=== PATIENT | female | born 1960 | race Caucasian/White ===

== ENCOUNTER → 2021-09-29 09:32 | Outpatient (BNVA) | payer BC, SELFPAY | PROVIDERS: PCP Pediatrics; Visit Provider Internal Medicine ==

== ENCOUNTER → 2022-01-08 14:55 | Outpatient (BNVA) | payer BC, SELFPAY | PROVIDERS: PCP Pediatrics; Visit Provider Internal Medicine | DX: M75.01 Adhesive capsulitis of right shoulder (principal) | CPT/HCPCS: 20610; J3300 ==

== ENCOUNTER 2023-12-06 11:11 | Outpatient (AMB) | payer MEDICARE, SELFPAY ==
--- NOTE | 2023-12-06 11:15 | MHC.OFFVIS ---
Vital Signs 12/06/23 11:16 Height 5 ft 1 in Weight 140 lb BMI 26.4 BP 99/56 L Blood Pressure Location Lt brachial Position Sitting Respiration 12 Pulse 76 Pulse Source Pulse Oximeter Pulse Oximetry (%) 98 Oxygen Delivery Method Room Air Intake Visit Reasons: Returning Pain Allergies sulfacetamide Allergy (Severe, Verified 12/06/23 11:18) Rash Medication List - Last Reconciled 12/06/23 by Emily Kaplan LPN estradiol 10 mcg vaginal levothyroxine 0 mcg PO risedronate 150 mg PO HPI HPI Returning Pain: Details: 63-year-old female who presents today to the office for returning pain symptoms after more than 1 year of relief from her last injections. Her symptoms started about two months ago. She reports shoulder and arm pain. She also reports neck pain, which is radiating in nature. She has difficulty elevating her arm. The pain is worse in the morning. She has difficulty picking things up. She states that she stayed overnight in [place] during hiking and was asleep in the small bed, which aggravated her pain. She completed physical therapy for her neck about a year ago. She has been doing home stretching exercises and yoga strap exercises. She has not had an MRI scan of her neck in the past. She has been under a lot of stress due to the recent demise of her sister. Past procedures: 01/08/22: corticosteroid injection of triamcinolone 40mg with 0.25% bupivacaine in the subacromial space under ultrasound guidance: More than 90% relief for more than 1 year [facility] [place] Medical History Adhesive capsulitis of right shoulder Cervical spinal stenosis Chronic fatigue Osman's thyroiditis Insomnia Osteoporosis PTSD (post-traumatic stress disorder) Social History (Updated 01/08/22 @ 15:01 by Grace Thompson CMA) Patient Tobacco Use Status: Never used Tobacco Review of Systems Const All systems reviewed & are unremarkable except as noted in HPI and below Physical Exam Vital Signs: Last Vital Signs Pulse 76 12/06/23 11:16 Resp 12 12/06/23 11:16 BP 99/56 L 12/06/23 11:16 Pulse Ox 98 12/06/23 11:16 Oxygen Delivery Method Room Air 12/06/23 11:16 BMI result Body Mass Index 26.4 General: Appears afebrile. Alert and oriented. Mood and affect appropriate. Follows and participates in conversation appropriately. Respiratory effort is unlabored. Able to transition from sit to stand unassisted. Ambulates with bilaterally normal heel strike and toe off. Results Reviewed Results Reviewed: No imaging is available for review. Assessment & Plan Assessment & Plan (1) Cervical radiculitis: Code(s): M54.12 - Radiculopathy, cervical region Category: Medical Plan A referral was provided to physical therapy. A script was also provided to the patient for physical therapy. Ordered an MRI scan of the neck for further evaluation. The patient will receive a call to schedule an appointment. The patient will follow up for review of the MRI scan result once it is completed. Scribed for Dr. Lowry by Osman Cunningham, medical appointment scheduler, on 12/06/2023. I, Dr. Lowry, have personally reviewed and agree with the information entered by the scribe. Orders: Orders MR lumbar spine wo con 12/06/23 M48.02 - Spinal stenosis, cervical region PT Evaluation and Treatment 12/06/23 M54.12 - Radiculopathy, cervical region
[2023-12-06 11:16] VITALS: BP 99/56; PULSE 76; RESP 12; O2SAT 98; BMI 26.4
== END 2023-12-06 11:33 | disposition home or self-care (01) ==
PROVIDERS: PCP Pediatrics; Visit Provider Internal Medicine
DX: M54.12 Radiculopathy, cervical region (principal)
CPT/HCPCS: 99213

== ENCOUNTER → 2023-12-06 11:11 | Outpatient (BNVA) | payer MEDICARE, SELFPAY | PROVIDERS: PCP Pediatrics; Visit Provider Internal Medicine | DX: M54.12 Radiculopathy, cervical region (principal) | CPT/HCPCS: 99212 ==

== ENCOUNTER 2024-01-08 16:38 | Outpatient (REF) | payer MEDICARE, SELFPAY | END 2024-01-08 16:39 | disposition home or self-care (01) | LOC: HO.MRI 16:38 | PROVIDERS: PCP Internal Medicine; Visit Provider Internal Medicine | DX: Z13.89 Encounter for screening for other disorder (principal) ==

== ENCOUNTER 2024-02-07 07:19 | Outpatient (REF) | payer MEDICARE, SELFPAY ==
--- NOTE | ~2024-02-07 | MR_ITS ---
EXAMINATION: MR CERVICAL SPINE WITHOUT CONTRAST CLINICAL INFORMATION: 63-year-old female, neck pain radiating down left arm. History of frozen shoulder. COMPARISON: No prior. TECHNIQUE: Multiplanar multisequence MR imaging of the cervical spine was done without IV contrast. Examination was performed on a 1.5 Nichole unit. FINDINGS: Alignment: Normal lordosis. No scoliosis. 2 mm retrolisthesis of C5 on C6, and C6 on C7. Craniocervical Junction/C1-C2 Articulations: Intact and aligned. Imaged Intracranial Structures: Mild cerebellar tonsillar ectopia is present, measuring approximately 3 mm, with pointed morphology of the right tonsil, although no significant crowding at the foramen magnum. Measurements do not meet strict criteria for a Chiari malformation. The imaged intracranial structures otherwise normal. Vertebral Bodies/Bone Marrow: No compression deformities. Trace endplate edema at C6-C7 oriented to the right. No abnormal infiltrating bone marrow signal. Discs: Moderate loss of disc height and signal noted C5-C6 and C6-C7. There is otherwise minimal loss of signal without significant loss of disc height. Spinal Cord: Normal in signal and caliber throughout. No evidence of impingement. Axial Disc Space Images: C2-C3: No central canal or neural foraminal stenosis. Normal facets. C3-C4: There is a minimal shallow disc bulge which is contiguous with mild right uncinate spurring. This indents upon the ventral thecal sac but does not contact the cord. Mild left facet spurring. Combination of findings is resulting in minimal central canal stenosis, and mild to moderate right neural foraminal stenosis. C4-C5: Shallow diffuse disc bulge present, contiguous with mild bilateral uncinate spurring. This indents upon the ventral thecal sac but does not contact cord. Minimal central canal stenosis. Normal-appearing facets. No significant neural foraminal narrowing. C5-C6: Significant disc degeneration. There is a shallow diffuse disc bulge present with a superimposed right far lateral protrusion of disc material with annular fissuring. This indents upon the ventral thecal sac but does not contact the cord. There is mild central canal narrowing. There is prominent right greater than left uncinate spurring. Facets appear normal. There is severe right, and mild left neural foraminal narrowing. C6-C7: Shallow diffuse bulging disc present, indenting upon the ventral thecal sac but does not contact the cord. There is moderate right and mild left uncinate spurring. There is mild bilateral facet spurring. There is mild central canal stenosis, and mild bilateral neural foraminal stenosis. C7-T1: No central canal or neural foraminal stenosis. Mild facet degeneration. T1-T4: No central canal or neural foraminal narrowing. Cervical Soft Tissues: The visualized extracranial head/neck soft tissues are unremarkable within the limitations of the study. No adenopathy. A saturation band obscures the thyroid. Paravertebral and paraspinous muscles appear normal. MR/MR cervical spine wo con IMPRESSION: 1. Mild to moderate spondylosis of the cervical spine most significant C5-C6 and C6-C7. 2. Mild cerebellar tonsillar ectopia not meeting criteria for Chiari I malformation. 3. Moderate disc degeneration C5-C6 and C6-C7. 4. No high-grade central canal stenosis or evidence of cord impingement. The cord is normal in signal and caliber throughout. 5. Severe right neural foraminal encroachment at C5-C6. No significant left neural foraminal stenosis to explain left radicular symptoms. 6. See the body of the report for details.
== END 2024-02-07 07:20 | disposition home or self-care (01) ==
LOC: HO.MRI 07:19
PROVIDERS: PCP Internal Medicine; Visit Provider Internal Medicine
DX: M48.02 Spinal stenosis, cervical region (principal)
CPT/HCPCS: 72141

== ENCOUNTER → 2024-02-07 07:19 | Outpatient (BNV) | payer MEDICARE, SELFPAY | PROVIDERS: PCP Internal Medicine; Visit Provider Radiology Diagnostic Radiology | DX: M54.2 Cervicalgia (principal) | CPT/HCPCS: 72141 ==

== ENCOUNTER 2024-03-20 10:09 | Outpatient (AMB) | payer MEDICARE, SELFPAY ==
--- NOTE | 2024-03-20 10:19 | A.OFFVIS_ITS ---
Vital Signs 03/20/24 10:20 Height 5 ft 1 in Weight 134 lb BMI 25.3 BP 103/64 Blood Pressure Location Lt brachial Position Sitting Respiration 14 Pulse 79 Pulse Source Pulse Oximeter Pulse Oximetry (%) 96 Oxygen Delivery Method Room Air Intake Visit Reasons: Discuss MRI Results Allergies sulfacetamide Allergy (Severe, Verified 12/06/23 11:18) Rash Medication List - Last Reconciled 03/20/24 by Emily Kaplan LPN estradiol 10 mcg vaginal levothyroxine 0 mcg PO risedronate 150 mg PO HPI HPI Discuss MRI Results: Details: 63-year-old female who presents today to the office for review of MRI scan result. She reports shoulder pain. She states that her pain was stable after the last injection, which was done in September 2021. She went to physical therapy after the last visit. She states that her ROM is stable. She reports muscle pulling and neck stiffness issues. She has been doing home exercises. She had a neck MRI scan, which was unremarkable. Repetitive activities and movements worsen the pain. She has difficulty doing her ADLs. She is planning to visit [facility] in the near future. Past procedures: 01/08/22: corticosteroid injection of triamcinolone 40mg with 0.25% bupivacaine in the subacromial space under ultrasound guidance: More than 90% relief for more than 1 year COUNT INCLUDES THE [facility] Medical History Adhesive capsulitis of right shoulder Cervical spinal stenosis Chronic fatigue Osman's thyroiditis Insomnia Osteoporosis PTSD (post-traumatic stress disorder) Social History (Updated 01/08/22 @ 15:01 by Grace Thompson CMA) Patient Tobacco Use Status: Never used Tobacco Review of Systems Const All systems reviewed & are unremarkable except as noted in HPI and below Physical Exam Vital Signs: Last Vital Signs Pulse 79 03/20/24 10:20 Resp 14 03/20/24 10:20 BP 103/64 03/20/24 10:20 Pulse Ox 96 03/20/24 10:20 Oxygen Delivery Method Room Air 03/20/24 10:20 BMI result Body Mass Index 25.3 General: Appears afebrile. Alert and oriented. Mood and affect appropriate. Follows and participates in conversation appropriately. Respiratory effort is unlabored. Able to transition from sit to stand unassisted. Ambulates with bilaterally normal heel strike and toe off. Left shoulder extension causes an ache in the shoulder joint. Office Procedures Joint Injection/Drain Joint Injection/Drain Details: Left glenohumeral joint steroid injection, ultrasound guided. Primary Site: left shoulder Prep: site was prepped using aseptic technique and site was prepped using sterile technique Injected: 40 mg of, Kenalog, with 1 mL of (lidocaine 1%), with 4 mL of (ropivacaine 0.25%) and in the joint Approach Used: posterolateral Procedure: The patient tolerated the procedure well Coding Details: An ultrasound image of the injection was taken and stored in the permanent record. - Glenohumeral with ultrasound guidance (Left) Procedure code (CPT) selection complete Results Reviewed Results Reviewed: 02/07/2024: MR CERVICAL SPINE WITHOUT CONTRAST FINDINGS: Alignment: Normal lordosis. No scoliosis. 2 mm retrolisthesis of C5 on C6, and C6 on C7. Craniocervical Junction/C1-C2 Articulations: Intact and aligned. Imaged Intracranial Structures: Mild cerebellar tonsillar ectopia is present, measuring approximately 3 mm, with pointed morphology of the right tonsil, although no significant crowding at the foramen magnum. Measurements do not meet strict criteria for a Chiari malformation. The imaged intracranial structures otherwise normal. Vertebral Bodies/Bone Marrow: No compression deformities. Trace endplate edema at C6-C7 oriented to the right. No abnormal infiltrating bone marrow signal. Discs: Moderate loss of disc height and signal noted C5-C6 and C6-C7. There is otherwise minimal loss of signal without significant loss of disc height. Spinal Cord: Normal in signal and caliber throughout. No evidence of impingement. Axial Disc Space Images: C2-C3: No central canal or neural foraminal stenosis. Normal facets. C3-C4: There is a minimal shallow disc bulge which is contiguous with mild right uncinate spurring. This indents upon the ventral thecal sac but does not contact the cord. Mild left facet spurring. Combination of findings is resulting in minimal central canal stenosis, and mild to moderate right neural foraminal stenosis. C4-C5: Shallow diffuse disc bulge present, contiguous with mild bilateral uncinate spurring. This indents upon the ventral thecal sac but does not contact cord. Minimal central canal stenosis. Normal-appearing facets. No significant neural foraminal narrowing. C5-C6: Significant disc degeneration. There is a shallow diffuse disc bulge present with a superimposed right far lateral protrusion of disc material with annular fissuring. This indents upon the ventral thecal sac but does not contact the cord. There is mild central canal narrowing. There is prominent right greater than left uncinate spurring. Facets appear normal. There is severe right, and mild left neural foraminal narrowing. C6-C7: Shallow diffuse bulging disc present, indenting upon the ventral thecal sac but does not contact the cord. There is moderate right and mild left uncinate spurring. There is mild bilateral facet spurring. There is mild central canal stenosis, and mild bilateral neural foraminal stenosis. C7-T1: No central canal or neural foraminal stenosis. Mild facet degeneration. T1-T4: No central canal or neural foraminal narrowing. Cervical Soft Tissues: The visualized extracranial head/neck soft tissues are unremarkable within the limitations of the study. No adenopathy. A saturation band obscures the thyroid. Paravertebral and paraspinous muscles appear normal. IMPRESSION: 1. Mild to moderate spondylosis of the cervical spine most significant C5-C6 and C6-C7. 2. Mild cerebellar tonsillar ectopia not meeting criteria for Chiari I malformation. 3. Moderate disc degeneration C5-C6 and C6-C7. 4. No high-grade central canal stenosis or evidence of cord impingement. The cord is normal in signal and caliber throughout. 5. Severe right neural foraminal encroachment at C5-C6. No significant left neural foraminal stenosis to explain left radicular symptoms. 6. See the body of the report for details. Assessment & Plan Assessment & Plan (1) Cervical radiculitis: Code(s): M54.12 - Radiculopathy, cervical region Category: Medical (2) Adhesive capsulitis of right shoulder: Code(s): M75.01 - Adhesive capsulitis of right shoulder Category: Medical Plan Patient is status post left glenohumeral joint steroid injection, ultrasound guided. Patient tolerated procedure well and was discharged home in stable condition with discharge instructions.? If today's injection is not helpful, we will consider a trial of suprascapular nerve stimulation for longstanding left shoulder pain that has been going on for more than [address]. [address] Lowry by Osman Cunningham, medical office administrator, on 03/20/2024. I, Dr. Lowry, have personally reviewed and agree with the information entered by the scribe. Coding Level of Care Code Est Pt Level 4 (45435) Diagnoses Cervical radiculitis M54.12 Adhesive capsulitis of right shoulder M75.01 CPT Codes Coding - Joint 8: [id number] - Glenohumeral with ultrasound guidance ([id number])
[2024-03-20 10:20] VITALS: BP 103/64; PULSE 79; RESP 14; O2SAT 96; BMI 25.3
== END 2024-03-20 10:57 | disposition home or self-care (01) ==
PROVIDERS: PCP Internal Medicine; Visit Provider Internal Medicine
DX: M54.12 Radiculopathy, cervical region (principal); M75.01 Adhesive capsulitis of right shoulder
CPT/HCPCS: 20611; 99214

== ENCOUNTER → 2024-03-20 10:09 | Outpatient (BNVA) | payer MEDICARE, SELFPAY | PROVIDERS: PCP Internal Medicine; Visit Provider Internal Medicine | DX: M54.12 Radiculopathy, cervical region (principal); M75.01 Adhesive capsulitis of right shoulder | CPT/HCPCS: 20611; 99212 ==